=== PATIENT | male | born 1995 | race Caucasian/White ===

== ENCOUNTER 2021-08-29 12:53 | Emergency (ER) | payer BC ==
[2021-08-29] MEDS ORDERED: Ciprofloxacin 500 MG TAB ONE (13:29)
== END 2021-08-29 13:54 | disposition home or self-care (01) ==
LOC: BURERS 12:53
DX: A09 Infectious gastroenteritis and colitis, unspecified (principal); F17.290 Nicotine dependence, other tobacco product, uncomplicated
CPT/HCPCS: 99283

== ENCOUNTER 2022-04-16 18:54 | Emergency (ER) | payer BC, OTHER ==
[2022-04-16] MEDS ORDERED: Ketorolac Tromethamine 60 MG/2 ML VIAL ONE (19:14)
== END 2022-04-16 19:15 | disposition short-term general hospital (02) ==
LOC: BURERS 18:54
DX: N50.812 Left testicular pain (principal); F17.210 Nicotine dependence, cigarettes, uncomplicated
CPT/HCPCS: 96372; 99284; J1885